=== PATIENT | female | born 1955 | race Caucasian/White ===

== ENCOUNTER 2016-11-29 11:32 | Emergency (ER) | payer SELFPAY ==
[2016-11-29 13:01] VITALS: BP 132/69
[2016-11-29] MEDS ORDERED: NAPR500T8 PO (14:20)
[2016-11-29] MEDS ORDERED: CYCL10TA2 PO (14:20)
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
== END 2016-11-29 14:28 | disposition home or self-care (01) ==
LOC: ER 11:32
DX: S86.912A Strain of unspecified muscle(s) and tendon(s) at lower leg level, left leg, initial encounter (principal); M54.42 Lumbago with sciatica, left side; Z88.0 Allergy status to penicillin; Y04.0XXA Assault by unarmed brawl or fight, initial encounter; Y93.89 Activity, other specified; Y92.89 Other specified places as the place of occurrence of the external cause; Y99.8 Other external cause status
CPT/HCPCS: 99283